=== PATIENT | male | born 1975 | race Caucasian/White ===

== ENCOUNTER 2017-11-11 23:10 | Inpatient (IN) | payer OTHER ==
[2017-11-11 23:16] VITALS: BMI 26.6
--- NOTE | 2017-11-12 00:41 | PDOC ---
History of Present Illness - General Chief Complaint: Pain Stated Complaint: PAIN, ACUTE Time Seen by Provider: 11/12/17 00:09 - History of Present Illness Initial Comments: 11/12/17 00:31 Pt is a 41 M w/ PMH cirrhosis, Hep B, gastritis, and EtOH abuse who presents to ED with malaise, nausea, nonbloody nonbilious vomiting, nonbloody diarrhea, and abdominal discomfort. Pt was recently admitted to [facility] and seen by GI. He states that since leaving the hospital, his symptoms have been waxing and waning but got significantly worse today around noon. Pt denies fever, chills, vomiting, headache. Pt states he does not drink anymore. Past History - Past Medical History Allergies/Adverse Reactions: Allergies Allergy/AdvReac Type Severity Reaction Status Date / Time No Known Allergies Allergy Verified 11/12/17 02:45 Home Medications: Ambulatory Orders Furosemide [Lasix] 40 mg PO BID 11/12/17 Spironolactone 100 mg PO BID 11/12/17 COPD: No Liver Disease: Yes (hepatitis B) - Suicide/Smoking/Psychosocial Hx Smoking History: Never smoked Have you smoked in the past 12 months: No Hx Alcohol Use: No Drug/Substance Use Hx: No Substance Use Type: None Review of Systems - Review of Systems Able to Perform ROS?: Yes Is the patient limited Moldovan proficient: No Constitutional: Yes: Symptoms Reported, Chills, Loss of Appetite HEENTM: Yes: Symptoms Reported. No: Blurred Vision Respiratory: Yes: Symptoms reported. No: Cough, Orthopnea, Shortness of Breath Cardiac (ROS): Yes: Symptoms Reported, See HPI. No: Chest Pain, Edema ABD/GI: Yes: Symptoms Reported, See HPI, Abdominal Distended, Diarrhea, Nausea, Vomiting : Yes: Symptoms Reported. No: Burning, Dysuria Musculoskeletal: Yes: Symptoms Reported, Muscle Weakness Integumentary: Yes: Symptoms Reported, Other (yellow skin) Neurological: Yes: Symptoms reported. No: Headache, Numbness, Paresthesia, Dizziness *Physical Exam - Vital Signs Last Vital Signs Temp Pulse Resp BP Pulse Ox 98.6 F 117 H 24 115/49 100 11/11/17 23:11 11/11/17 23:11 11/11/17 23:11 11/11/17 23:11 11/11/17 23:11 - Physical Exam General Appearance: Yes: Nourished, Appropriately Dressed. No: Apparent Distress HEENT: positive: EOMI, RADHA, Pharynx Normal, Scleral Icterus (R), Scleral Icterus (L). negative: Normal ENT Inspection (dry mucous membranes), Pharyngeal Erythema, Tonsillar Exudate Neck: positive: Supple. negative: Tender Respiratory/Chest: positive: Chest Tender, Lungs Clear, Normal Breath Sounds. negative: Respiratory Distress, Accessory Muscle Use Cardiovascular: positive: Regular Rhythm, Murmur (systolic 4/6 L heard best at parasternal ), Tachycardia Vascular Pulses: Dorsalis-Pedis (R): 2+, Doralis-Pedis (L): 2+ Gastrointestinal/Abdominal: positive: Normal Bowel Sounds, Tender, Distended, Tenderness. negative: Guarding, Rebound, Hepatomegaly Musculoskeletal: positive: Normal Inspection Extremity: positive: Normal Capillary Refill, Normal Inspection. negative: Tender ED Treatment Course - LABORATORY CBC & Chemistry Diagram: 11/12/17 01:24 11/12/17 01:24 Medical Decision Making - Medical Decision Making 11/12/17 00:46 Pt is a 41M w/ PMH cirrhosis, Hep B, EtOH abuse, and gastritis who came to ED for malaise, nausea, vomiting, diarrhea, and abdominal discomfort. R/o SBP vs acute liver failure -cbc -cmp -ammonia -lipase -U/S 11/12/17 03:03 cbc 0.8 ammonia 65 transaminitis INR 3 11/12/17 05:24 Pt witnessed to have what appears to be blood on face and shirt. -repeat CBC -type and screen -GI consult Spoke with GI, Dr. Thayer. Recommends following up CBC, FOBT, and octreotide drip if there is concern for bleed. 11/12/17 07:06 Pt signed out to day team. *DC/Admit/Observation/Transfer Diagnosis at time of Disposition: Cirrhosis Qualifiers: Hepatic cirrhosis type: alcoholic cirrhosis Ascites presence: with ascites Qualified Code(s): K70.31 - Alcoholic cirrhosis of liver with ascites - Discharge Dispostion Admit: Yes - Referrals - Patient Instructions - Post Discharge Activity
[2017-11-12] MEDS ORDERED: morphine CARPU-JECT 2 MG/1 ML DISP.SYRIN IVPUSH ONE ×2 (01:34→03:59)
[2017-11-12] MEDS ORDERED: ONDANSETRON 4 MG/2 ML VIAL ONE (01:36)
[2017-11-12] MEDS ORDERED: morphine CARPU-JECT 10 MG/1 ML DISP.SYRIN ONE (01:37)
[2017-11-12 01:39] LABS: HEMATOCRIT 33.2 % (35.4-49); HEMOGLOBIN 11.5 GM/dL (11.7-16.9); MCHC 34.6 g/dl (32.0-35.9); MEAN PLT VOLUME 8.8 fl (7.5-11.1); PLATELET COUNT 89 K/MM3 (134-434); RBC 2.79 M/mm3 (4.00-5.60); RDW 16.1 % (11.9-15.9)
[2017-11-12] MEDS ORDERED: ONDANSETRON 4 MG/2 ML VIAL IVPUSH ONE (01:50)
[2017-11-12 01:53] LABS: ADD RBC MORPHOLOGY YES; MCH 41.2 pg (25.7-33.7)
[2017-11-12 01:57] LABS: WHITE BLOOD COUNT 0.8 K/mm3 (4.0-10.0)
[2017-11-12] MEDS ORDERED: CEFTRIAXONE 1 GM in DEXTROSE 5%-WATER - 50 ML IVPB ONE (02:02)
[2017-11-12 02:06] LABS: ALBUMIN 1.1 g/dl (3.4-5.0); ALK PHOS 218 U/L (45-117); ANION GAP 15 (8-16); BILIRUBIN,TOTAL 7.3 mg/dL (0.2-1.0); BLOOD UREA NITROGEN 27 mg/dL (7-18); CHLORIDE 93 mmol/L (98-107); CO2 22 mmol/L (21-32); CREATININE 1.7 mg/dL (0.7-1.3); GLUCOSE,RANDOM 78 mg/dL (74-106); POTASSIUM 4.9 mmol/L (3.5-5.1); SGOT/AST 287 U/L (15-37); SGPT/ALT 232 U/L (12-78); SODIUM 130 mmol/L (136-145); TOT PROT 6.8 g/dl (6.4-8.2)
[2017-11-12 02:08] LABS: INR 3.09 (0.82-1.09); PROTHROMBIN TIME (PATIENT) 34.9 SEC (9.98-11.88)
[2017-11-12 02:16] LABS: LIPASE 351 U/L (73-393)
--- NOTE | 2017-11-12 03:14 | PDOC ---
Attending Attestation - Resident Resident Name: Devante Cardenas - ED Attending Attestation I have performed the following: I have examined & evaluated the patient, The case was reviewed & discussed with the resident, I agree w/resident's findings & plan, Exceptions are as noted - HPI HPI: 11/12/17 03:07 The patient is a 41 year old male with signficant history of hepatitis B, liver cirrhosis, alcohol abuse, who presents to the ED complaining of approximately 2 weeks of intermittent nausea, vomiting. Denies blood emesis. Also reports new diffuse abd pain since yesterday and generalized weakness since yesterday prompting him to come in today. Denies fevers, +chills. Denies CP, SOB. Denies recent etoh use. - Physicial Exam PE: 11/12/17 03:10 GENERAL: Awake, alert, and fully oriented, appears uncomfortable HEAD: No signs of trauma EYES: PERRLA, EOMI, +scleral icterus ENT: Auricles normal inspection, hearing grossly normal, nares patent, oropharynx clear without exudates. dry MM NECK: Normal ROM, supple, no lymphadenopathy, JVD, or masses LUNGS: Breath sounds equal, clear to auscultation bilaterally. No wheezes, and no crackles HEART: Tachy but regular to 110, normal S1 and S2, no murmurs, rubs or gallops ABDOMEN: distended abdomen, dull to percussion, ttp diffusely. EXTREMITIES: Normal range of motion, no edema. No clubbing or cyanosis. No cords, erythema, or tenderness NEUROLOGICAL: Normal speech, cranial nerves intact, negative pronator drift, 5/ 5 strength in all 4 extremities, normal sensation to light touch in all 4 extremities, normal cerebellar exam, normal gait, normal reflexes and tone SKIN: Warm, Dry, jaundiced Bedside sono with ascities but no large pockets to tap - Medical Decision Making 11/12/17 03:13 41-year-old male with a history of hepatitis B and alcohol abuse presents with nausea, vomiting, abdominal pain and generalized weakness. Vitals with tachycardia to 110. Exam with distended abdomen, dullness to percussion and tenderness palpation concerning for SBP. Bedside ultrasound with no large pockets for diagnostic tap, will cover with ceftriaxone empirically. Will obtain labs and admit patient. <Nassef,Yomna - Last Filed: 11/12/17 03:06> - Medical Decision Making Addendum by Phuc Villalobos 11/12/17 Pt was signed out to myself by Dr. Andrews at 3:30am. Prior to my assumption of care, signout was given to hospitalist and "decision to admit" order was entered. Dr. Araujo subsequently came to ER to evaluate pt. Due to concern for GI bleed, Dr. Araujo requested repeat labs and GI consultation to evaluate need for ICU- level care. Dr. Thayer, GI supervisor long goods, was consulted and recommended following up on repeat CBC. Upon my re-evaluation of the patient prior to sign out, the pt was resting in bed, awake and alert, in no acute distress. His last set of vitals were taken at 5am and were wnl, with BP 116/84, HR 99, satting well on RA. At 7am, I signed out the patient to oncoming ED attending as admitted to hospitalist team, pending repeat CBC to determine potential need for ICU level care. <Phuc Villalobos - Last Filed: 11/13/17 01:57>
[2017-11-12] MEDS ORDERED: CEFTRIAXONE 1 GM/50 ML BAG ONE (03:17)
[2017-11-12] MEDS ORDERED: SODIUM CHLORIDE 0.9% 1000 ML INFUS.BAG IV ONE (03:20)
[2017-11-12 03:46] LABS: MACROCYTOSIS 2+
[2017-11-12] MEDS ORDERED: VANCOMYCIN 1,000 MG in DEXTROSE 5%-WATER - 250 ML IVPB ONE (03:56)
[2017-11-12] MEDS ORDERED: VANCOMYCIN 1 GRAM (PRE-DOCKED) 1,000 MG/250 ML BAG IVPB ONE (04:04)
[2017-11-12] MEDS ORDERED: morphine CARPU-JECT 2 MG/1 ML DISP.SYRIN ONE (04:05)
[2017-11-12 05:07] VITALS: BP 116/84; PULSE 99; TEMP 98.1
[2017-11-12 05:42] LABS: HEMATOCRIT 31.7 % (35.4-49); HEMOGLOBIN 10.9 GM/dL (11.7-16.9); MCHC 34.3 g/dl (32.0-35.9); MEAN CELL VOLUME 121.8 fl (80-96); MEAN PLT VOLUME 8.5 fl (7.5-11.1); PLATELET COUNT 68 K/MM3 (134-434); RDW 16.5 % (11.9-15.9)
[2017-11-12 07:28] LABS: MCH 41.7 pg (25.7-33.7)
[2017-11-12 07:53] LABS: WHITE BLOOD COUNT 0.5 K/mm3 (4.0-10.0)
--- NOTE | 2017-11-12 07:55 | PDOC ---
*Physical Exam - Vital Signs Last Vital Signs Temp Pulse Resp BP Pulse Ox 98.1 F 99 H 19 116/84 98 11/12/17 05:01 11/12/17 05:01 11/12/17 05:01 11/12/17 05:01 11/12/17 05:01 <Parish Morris - Last Filed: 11/12/17 09:53> - Vital Signs Last Vital Signs Temp Pulse Resp BP Pulse Ox 98.1 F 99 H 19 116/84 98 11/12/17 05:01 11/12/17 05:01 11/12/17 05:01 11/12/17 05:01 11/12/17 05:01 <CedrickAldair foster - Last Filed: 11/12/17 18:35> ED Treatment Course - LABORATORY CBC & Chemistry Diagram: 11/12/17 05:10 11/12/17 01:24 - ADDITIONAL ORDERS Additional order review: Laboratory Results 11/12/17 11/12/17 11/12/17 01:35 01:24 01:24 PT with INR 34.90 H INR 3.09 H PTT (Actin FS) Sodium 130 L Potassium 4.9 Chloride 93 L Carbon Dioxide 22 Anion Gap 15 BUN 27 H D Creatinine 1.7 H D Creat Clearance w eGFR 44.86 Random Glucose 78 D Calcium 8.0 L Total Bilirubin 7.3 H D AST 287 H D ALT 232 H Alkaline Phosphatase 218 H D Ammonia 65.48 H Total Protein 6.8 Albumin 1.1 L D Lipase 351 Alcohol, Quantitative 11/12/17 11/12/17 01:24 01:24 PT with INR INR PTT (Actin FS) 42.6 H Sodium Potassium Chloride Carbon Dioxide Anion Gap BUN Creatinine Creat Clearance w eGFR Random Glucose Calcium Total Bilirubin AST ALT Alkaline Phosphatase Ammonia Total Protein Albumin Lipase Alcohol, Quantitative < 5.0 11/12/17 01:24 RBC 2.79 L MCV 119.0 H MCHC 34.6 RDW 16.1 H MPV 8.8 Neutrophils % No Result Required. Lymphocytes % No Result Required. - Medications Given in the ED: ED Medications Discontinued Medications Generic Name Dose Route Start Last Admin Trade Name Freq PRN Reason Stop Dose Admin Ceftriaxone Sodium 1 gm/ 50 mls @ 100 mls/hr 11/12/17 02:02 11/12/17 03:18 Dextrose IVPB 11/12/17 02:31 100 mls/hr ONCE ONE Administration Vancomycin HCl 1,000 mg/ 250 mls @ 250 mls/hr 11/12/17 03:56 11/12/17 04:12 Dextrose IVPB 11/12/17 04:55 250 mls/hr ONCE ONE Administration Protocol Morphine Sulfate 2 mg 11/12/17 01:34 11/12/17 01:49 Morphine Injection - IVPUSH 11/12/17 01:35 2 mg ONCE ONE Administration Morphine Sulfate 2 mg 11/12/17 03:59 11/12/17 04:14 Morphine Injection - IVPUSH 11/12/17 04:00 2 mg ONCE ONE Administration Ondansetron HCl 4 mg 11/12/17 01:50 11/12/17 01:50 Zofran Injection IVPUSH 11/12/17 01:51 4 mg NOW ONE Administration Sodium Chloride 500 ml 11/12/17 03:20 11/12/17 03:31 Normal Saline - IV 11/12/17 03:21 500 ml ONCE ONE Administration <Parish Morris - Last Filed: 11/12/17 09:53> - LABORATORY CBC & Chemistry Diagram: 11/12/17 05:10 11/12/17 01:24 - ADDITIONAL ORDERS Additional order review: Laboratory Results 11/12/17 11/12/17 11/12/17 01:35 01:24 01:24 PT with INR 34.90 H INR 3.09 H PTT (Actin FS) Sodium 130 L Potassium 4.9 Chloride 93 L Carbon Dioxide 22 Anion Gap 15 BUN 27 H D Creatinine 1.7 H D Creat Clearance w eGFR 44.86 Random Glucose 78 D Calcium 8.0 L Total Bilirubin 7.3 H D AST 287 H D ALT 232 H Alkaline Phosphatase 218 H D Ammonia 65.48 H Total Protein 6.8 Albumin 1.1 L D Lipase 351 Alcohol, Quantitative 11/12/17 11/12/17 01:24 01:24 PT with INR INR PTT (Actin FS) 42.6 H Sodium Potassium Chloride Carbon Dioxide Anion Gap BUN Creatinine Creat Clearance w eGFR Random Glucose Calcium Total Bilirubin AST ALT Alkaline Phosphatase Ammonia Total Protein Albumin Lipase Alcohol, Quantitative < 5.0 11/12/17 01:24 RBC 2.79 L MCV 119.0 H MCHC 34.6 RDW 16.1 H MPV 8.8 Neutrophils % No Result Required. Lymphocytes % No Result Required. - Medications Given in the ED: ED Medications Discontinued Medications Generic Name Dose Route Start Last Admin Trade Name [place] PRN Reason Stop Dose Admin Ceftriaxone Sodium 1 gm/ 50 mls @ 100 mls/hr 11/12/17 02:02 11/12/17 03:18 Dextrose IVPB 11/12/17 02:31 100 mls/hr ONCE ONE Administration Vancomycin HCl 1,000 mg/ 250 mls @ 250 mls/hr 11/12/17 03:56 11/12/17 04:12 Dextrose IVPB 11/12/17 04:55 250 mls/hr ONCE ONE Administration Protocol Morphine Sulfate 2 mg 11/12/17 01:34 11/12/17 01:49 Morphine Injection - IVPUSH 11/12/17 01:35 2 mg ONCE ONE Administration Morphine Sulfate 2 mg 11/12/17 03:59 11/12/17 04:14 Morphine Injection - IVPUSH 11/12/17 04:00 2 mg ONCE ONE Administration Ondansetron HCl 4 mg 11/12/17 01:50 11/12/17 01:50 Zofran Injection IVPUSH 11/12/17 01:51 4 mg NOW ONE Administration Sodium Chloride 500 ml 11/12/17 03:20 11/12/17 03:31 Normal Saline - IV 11/12/17 03:21 500 ml ONCE ONE Administration <Aldair Philip - Last Filed: 11/12/17 18:35> Medical Decision Making - Medical Decision Making 11/12/17 07:50 Patient was admitted to the hospitalist team. The patient is a hep C cirrhotic admitted for a possible GIB, admitted to the inpatient team overnight and noted to have neutropenia at 0.9. He was given abx and had a stable hgb. The patient was found at approximately 0719 by the nurse to be unresponsive in bed 2 with vomitus at his mouth. He was moved immediately to bed 10, placed on a live truck operator and CPR was started. Monitor revealed asystole. ACLS was performed for 3 cycles. The patient was intubated. He required 2 attempts at intubating and had jaw stiffness during intubation. Bedside echo showed cardiac standstill with no activity. Time of was 0735. 11/12/17 09:02 I have spoken to the [place] examiner's office, Cesar Quiroga. Case # [id number] Dr. Philip has called next of kin and informed them to come to the ER. forms filled out. No PCP. 11/12/17 09:53 ME is not taking the case. Release # is same as above ([id number]). <Parish Morris - Last Filed: 11/12/17 09:53> - Medical Decision Making 11/12/17 08:29 Pt is a 41y M hx of cirhosis, HBV, gastritis, etoh abuse who presents with an episode of abdominal pain with possible GIB (reddish substance, although pt states he also ate some cranberry juice), had recent hospitalization and seen by GI - pt was admitted prior to my arrival to the hospital. at approximately 7: 19am, the pt was found to be unresponsive by RN with fresh reddish vomitus on his face and on his stretcher. pt was immeidately moved to bed 10, pt was found pulseless, awas found to be in asystole when hooked up to the live truck operator, acls was performed x 3 cycles, definitive airway was obtained after 2nd attempt (1st attempt using direct, 2nd attempt using video), bedside echo showed cardiac standstill. Time of was called at 735am by myself. cardiac rhthm never deviated from asystole. ME notified Family will come to ED. 11/12/17 9:45 family notified in ED 11/12/17 10:12 declined by ME after discussion with MD 11/12/17 18:34 certificate completed cause of suspected due to cardiac arrest secondary to hypoxia/respiratory arrest secondary to aspiration. <Aldair Philip - Last Filed: 11/12/17 18:35> *DC/Admit/Observation/Transfer <Parish Morris - Last Filed: 11/12/17 09:53> <Aldair Philip - Last Filed: 11/12/17 18:35> Diagnosis at time of Disposition: Cirrhosis Qualifiers: Hepatic cirrhosis type: alcoholic cirrhosis Ascites presence: with ascites Qualified Code(s): K70.31 - Alcoholic cirrhosis of liver with ascites - Discharge Dispostion Disposition:
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
--- NOTE | 2017-11-12 13:07 | EKG ---
Test Reason : Blood Pressure : / mmHG Vent. Rate : 117 BPM Atrial Rate : 117 BPM P-R Int : 148 ms QRS Dur : 068 ms QT Int : 338 ms P-R-T Axes : 056 064 057 degrees QTc Int : 471 ms SINUS TACHYCARDIA OTHERWISE NORMAL ECG WHEN COMPARED WITH ECG OF 19-SEP-2017 22:34, VENT. RATE HAS INCREASED BY 53 BPM Confirmed by MD Claudio Daniel ([id number]) on 11/12/2017 1:07:33 PM Referred By: Confirmed By:Kostas Claudio MD
== END 2017-11-12 07:40 | disposition expired | DRG 253 ==
LOC: JER 23:10 → JERBED 11-12 03:20
PROVIDERS: ADMIT Internal Medicine; ATTEND Internal Medicine
PROC: 0CHY7BZ Insertion of Airway into Mouth and Throat, Via Natural or Artificial Opening (ICD-10-PCS; principal; 2017-11-12)
PROC: 5A12012 Performance of Cardiac Output, Single, Manual (ICD-10-PCS; 2017-11-12)
PROC: 0CHY7BZ Insertion of Airway into Mouth and Throat, Via Natural or Artificial Opening (ICD-10-PCS; 2017-11-12)
DX: K92.2 Gastrointestinal hemorrhage, unspecified (principal); K70.31 Alcoholic cirrhosis of liver with ascites; B19.10 Unspecified viral hepatitis B without hepatic coma; F10.10 Alcohol abuse, uncomplicated; R00.0 Tachycardia, unspecified; R09.02 Hypoxemia; D70.9 Neutropenia, unspecified; K72.00 Acute and subacute hepatic failure without coma; R09.2 Respiratory arrest
CPT/HCPCS: 36415; 80053; 80307; 82140; 83690; 85025; 85610; 85730; 86850; 86900; 86901; 93005; 93010; 99285-25